=== PATIENT | male | born 1955 | race Two or more races ===

== ENCOUNTER 2022-01-04 03:07 | Inpatient (IN) | payer OTHER ==
[~2022-01-04] VITALS: Ht 182.9 cm; Wt 86.0 kg
[2022-01-04 04:16] LABS: Basophils # (auto) 0.1 10 ^3/uL (0-0.2); Eosinophils # (auto) 0 10 ^3/uL (0-0.8); Lymphocytes # (auto) 1.7 10 ^3/uL (0.4-5.4); Monocytes # (auto) 0.8 10 ^3/uL (0-1.3)
[2022-01-04 04:18] LABS: Basophils % (auto) 0.5 % (0.0-2.0); Hemoglobin 8.9 g/dL (13.5-17.5); Lymphocytes % (auto) 15.1 % (10.0-50.0); Mean Corpuscular Hemoglobin 38.6 pg (28.0-32.0); Mean Corpuscular Hgb Conc. 34.1 g/dL (32.0-36.0); Monocytes % (auto) 6.8 % (0.0-12.0); Neutrophils # (auto) 8.9 10 ^3/uL (1.6-8.6); Neutrophils % (auto) 77.6 % (37.0-80.0); Nucleated Red Blood Cells % 0.1 %; Red Cell Distribution Width 16.4 % (11.8-14.3); White Blood Cell 11.4 10^3/uL (4.4-10.8)
[2022-01-04 04:33] LABS: Albumin 1.7 g/dL (3.4-5.0); Calcium 8.1 mg/dL (8.5-10.1)
[2022-01-04 04:35] LABS: BUN/Creatinine Ratio 5.4
[2022-01-04 04:36] LABS: Lactic Acid w/Reflex 10.4 mmol/L (0.4-2.0)
[2022-01-04 04:40] LABS: Bilirubin, Total 1.7 mg/dL (0.2-1.0); Total Protein 6.8 g/dL (6.4-8.2)
[2022-01-04 05:24] LABS: INR 1.66 (0.9-1.15); Partial Thromboplastin Time 60.6 sec (23.6-33.0)
[2022-01-04] MEDS ORDERED: cefTRIAXone 1GM/50ML D5W 50 ML IV ONE (08:15)
[2022-01-04] MEDS ORDERED: PIPERACILLIN-TAZO 4.5GM 100 ML IV ONE (09:30)
[2022-01-04] MEDS ORDERED: SODIUM CHLORIDE 0.9% 250 ML IV ONE (09:30)
[2022-01-04] MEDS ORDERED: NOREPINEPHRINE 8 MG/250ML KIT 250 ML IV SCH (10:00)
[2022-01-04] MEDS ORDERED: ONDANSETRON HCL 4 MG/2 ML VIAL IV PRN (13:30)
[2022-01-04] MEDS ORDERED: NITROGLYCERIN 0.4 MG SL TAB SL PRN (13:30)
[2022-01-04] MEDS ORDERED: DOCUSATE SOD 100 MG CAP PO PRN (13:30)
[2022-01-04] MEDS ORDERED: SODIUM CHLORIDE 0.9% 1,000 ML IV SCH (13:30)
[2022-01-04 19:00] VITALS: BP 104/57
[2022-01-04 20:00] VITALS: BP 110/65
[2022-01-04] MEDS ORDERED: VANCOMYCIN PER PHARMACY 0 MG IV SCH (20:30)
[2022-01-04 21:00] VITALS: BP 106/46
[2022-01-04] MEDS ORDERED: VANCOMYCIN 1GM/250ML 250 ML IV ONE (21:15)
[2022-01-04] MEDS: SODIUM CHLORIDE 0.9% 1,000 ML IV SCH (21:51)
[2022-01-04 22:00] VITALS: BP 121/43
[2022-01-04] MEDS ORDERED: SUCCINYLCHOLINE CHLORIDE 20 MG/ML 10ML VIAL IV ONE (23:06)
[2022-01-04] MEDS ORDERED: ETOMIDATE (2MG/ML) 20ML VIAL IV ONE (23:06)
[2022-01-04] MEDS ORDERED: PROPOFOL 100 ML IV ONE (23:12)
[2022-01-04 23:23] VITALS: BP 129/57
[2022-01-05] VITALS (98 sets, daily range): BP systolic 70–113; BP diastolic 24–64
[2022-01-05] MEDS: PIPERACILLIN-TAZOB 2.25GM 50 ML IV SCH ×4 (00:30→22:15)
[2022-01-05] MEDS: PROPOFOL 100 ML IV SCH ×3 (00:33→21:00)
[2022-01-05] MEDS: LACTULOSE 20Gm/30ML SOLN PO SCH ×7 (00:36→22:15)
[2022-01-05] MEDS: fentaNYL Drip 2500mCg/250mlNS 250 ML IV SCH (00:57)
[2022-01-05] MEDS: SODIUM BICARBONATE 50ML VIAL 150 ML in D5W 5% 1,000 ML IV SCH ×2 (01:30→13:57)
[2022-01-05] MEDS: LACTULOSE 10g/15ml SOLN PR SCH ×3 (01:42→04:54)
[2022-01-05] MEDS: SODIUM CHLORIDE 0.9% 1,000 ML IV SCH (05:03)
[2022-01-05 05:09] LABS: Hematocrit 24.7 % (41.0-53.0); Hemoglobin 8.2 g/dL (13.5-17.5); Mean Corpuscular Hemoglobin 39.3 pg (28.0-32.0); Mean Corpuscular Hgb Conc. 33.2 g/dL (32.0-36.0); Mean Corpuscular Volume 118.3 fL (80.0-100.0); Red Blood Cells 2.09 10^6/uL (4.5-5.90); Red Cell Distribution Width 16.9 % (11.8-14.3); White Blood Cell 28.6 10^3/uL (4.4-10.8)
[2022-01-05 05:35] LABS: Basophils % (manual) 0 (0.0-2.0); Blast Cells 0; Metamyelocytes % 0; Myelocytes % 0; Promyelocytes % 0; Reactive Lymphocytes 0
[2022-01-05 06:40] LABS: Albumin 1.2 g/dL (3.4-5.0)
[2022-01-05 06:43] LABS: BUN/Creatinine Ratio 5.4; Bilirubin, Total 1.9 mg/dL (0.2-1.0); Total Protein 6.2 g/dL (6.4-8.2)
[2022-01-05 06:59] LABS: Band Neutrophils % (manual) 20; Eosinophils % (manual) 1 (0-7); Lymphocytes % (manual) 4 (10.0-50.0); Monocytes % (manual) 4 (0-12)
[2022-01-05] MEDS ORDERED: SODIUM ZIRCONIUM CYCL 10 GM PAK PO ONE (09:30)
[2022-01-05] MEDS ORDERED: FUROSEMIDE 40 MG/4 ML VIAL IV ONE (09:30)
[2022-01-05] MEDS ORDERED: CALCIUM GLUC 1,000mg/50ml-NS 50 ML IV ONE (09:30)
[2022-01-05] MEDS ORDERED: ALBUTEROL SULF 2.5 MG/0.5ML(0.5%) NEB SOLN NEB ONE (09:30)
[2022-01-05] MEDS ORDERED: SODIUM BICARBONATE 8.4% INJ 50ML SYRINGE IV ONE (09:30)
[2022-01-05] MEDS: THIAMINE 100mg/ml INJ (200mg/2ml VIAL) IV SCH (11:02)
[2022-01-05] MEDS: phytonadione 10 MG in SODIUM CHL 0.9% 50 ML IV SCH (11:59)
[2022-01-05 12:17] LABS: Alcohol, Urine < 3.0 mg/dL (0-10); Amphetamine Screen, Urine NEGATIVE (NEGATIVE); Barbiturate Scree,Urine NEGATIVE (NEGATIVE); Benzodiazephine Screen, Urine NEGATIVE (NEGATIVE); Cannabinoid Screen, Urine NEGATIVE (NEGATIVE); Cocaine Screen, Urine NEGATIVE (NEGATIVE); Opiate Scree,Urine NEGATIVE (NEGATIVE); Phencyclidine Screen, Urine NEGATIVE (NEGATIVE); Urine Bacteria FEW /hpf (None Seen); Urine Blood 3+ /uL (Negative); Urine Hyaline Cast MANY /lpf (0 - 2); Urine Mucus FEW (None Seen); Urine Specific Gravity 1.022 (1.001-1.035); Urine WBC 743 /hpf (0 - 3); Urine WBC Clumps PRESENT /hpf (None Seen)
[2022-01-05 12:24] LABS: Protein, Urine 393.5 mg/dL (0.0-11.9)
[2022-01-05] MEDS ORDERED: FAMOTIDINE (10MG/ML) 2ML VL IV SCH (13:00)
[2022-01-05] MEDS ORDERED: LIDOCAINE 1% (LOCAL ANESTH.) PF 5ml SDV ID ONE (14:00)
[2022-01-05] MEDS: SODIUM ZIRCONIUM CYCL 10 GM PAK PO SCH ×2 (14:02→22:15)
[2022-01-05] MEDS ORDERED: VASOPRESSIN 50 UNITS in D5W 5% 247.5 ML IV SCH (15:00)
[2022-01-05] MEDS ORDERED: EPINEPHrine HCL 250 ML IV SCH (15:00)
[2022-01-05] MEDS: NOREPINEPHRINE BITARTRATE 32 MG in SODIUM CHL 0.9% 218 ML IV SCH (18:18)
[2022-01-05] MEDS: SODIUM CHLOR 0.9% PF (SALINE LOCK) 10ML VIAL/SYR IV SCH (22:14)
[2022-01-06] VITALS (76 sets, daily range): BP systolic 65–120; BP diastolic 29–62
[2022-01-06] MEDS: fentaNYL Drip 2500mCg/250mlNS 250 ML IV SCH (00:45)
[2022-01-06] MEDS: LACTULOSE 20Gm/30ML SOLN PO SCH ×4 (02:00→14:23)
[2022-01-06] MEDS: PIPERACILLIN-TAZOB 2.25GM 50 ML IV SCH (05:36)
[2022-01-06] MEDS: SODIUM ZIRCONIUM CYCL 10 GM PAK PO SCH (05:36)
[2022-01-06 07:06] LABS: Albumin 1.3 g/dL (3.4-5.0); Calcium 7.3 mg/dL (8.5-10.1); Potassium 4.6 mmol/L (3.5-5.1)
[2022-01-06 07:08] LABS: BUN/Creatinine Ratio 5.1
[2022-01-06 07:11] LABS: Lactic Acid w/Reflex 9.5 mmol/L (0.4-2.0); Total Protein 5.5 g/dL (6.4-8.2)
[2022-01-06 07:23] LABS: Basophils # (auto) 0.2 10 ^3/uL (0-0.2); Basophils % (auto) 1.1 % (0.0-2.0); Eosinophils # (auto) 0.2 10 ^3/uL (0-0.8); Eosinophils % (auto) 1.1 % (0.0-7.0); Hematocrit 22.6 % (41.0-53.0); Hemoglobin 7.6 g/dL (13.5-17.5); Lymphocytes # (auto) 2.1 10 ^3/uL (0.4-5.4); Lymphocytes % (auto) 9.3 % (10.0-50.0); Mean Corpuscular Hemoglobin 37.5 pg (28.0-32.0); Mean Corpuscular Hgb Conc. 33.7 g/dL (32.0-36.0); Monocytes # (auto) 1.2 10 ^3/uL (0-1.3); Monocytes % (auto) 5.4 % (0.0-12.0); Neutrophils # (auto) 18.4 10 ^3/uL (1.6-8.6); Neutrophils % (auto) 83.1 % (37.0-80.0); Nucleated Red Blood Cells % 0.1 %; Red Blood Cells 2.03 10^6/uL (4.5-5.90); Red Cell Distribution Width 16.8 % (11.8-14.3); White Blood Cell 22.1 10^3/uL (4.4-10.8)
[2022-01-06 07:25] LABS: Mean Corpuscular Volume 111.3 fL (80.0-100.0)
[2022-01-06] MEDS: NOREPINEPHRINE BITARTRATE 32 MG in SODIUM CHL 0.9% 218 ML IV SCH (10:13)
[2022-01-06] MEDS: SODIUM CHLOR 0.9% PF (SALINE LOCK) 10ML VIAL/SYR IV SCH (10:22)
[2022-01-06] MEDS: phytonadione 10 MG in SODIUM CHL 0.9% 50 ML IV SCH (10:46)
[2022-01-06] MEDS: THIAMINE 100mg/ml INJ (200mg/2ml VIAL) IV SCH (10:46)
[2022-01-06] MEDS ORDERED: VANCOMYCIN PER PHARMACY 0 MG IV STA (13:50)
[2022-01-06] MEDS ORDERED: MEROPENEM 1GM IVPB 100 ML IV ONE (14:00)
[2022-01-06] MEDS ORDERED: MICAFUNGIN SODIUM 100 MG in SODIUM CHL 0.9% 100 ML IV ONE (14:13)
[2022-01-06] MEDS: SODIUM BICARBONATE 50ML VIAL 150 ML in D5W 5% 1,000 ML IV SCH (14:21)
[2022-01-06] MEDS ORDERED: VANCOMYCIN 750mg/250ml 250 ML IV ONE (16:00)
[2022-01-06] MEDS ORDERED: MORPHINE SULFATE INJECTION 2 MG/ML SYRG IV PRN ×2 (16:00→16:45)
[2022-01-06] MEDS ORDERED: LORazepam 2MG/ML-1ML VIAL IV PRN (16:00)
[2022-01-06] MEDS ORDERED: LORazepam 2MG/ML-1ML VIAL IV ONE (18:00)
[2022-01-07] MEDS ORDERED: MEROPENEM 500MG IVPB 50 ML IV SCH (10:00)
[2022-01-07] MEDS ORDERED: MICAFUNGIN SODIUM 100 MG in SODIUM CHL 0.9% 100 ML IV SCH (10:00)
[2022-01-08] MEDS ORDERED: FAMOTIDINE (10MG/ML) 2ML VL IV SCH (10:00)
== END 2022-01-06 17:59 | DRG 871 ==
LOC: EDBD 03:07 → ER 03:12 → TELE 13:27 → DOU IN ICU 18:15 → ICU CENTRL 23:25
PROVIDERS: ADMIT Internal Medicine; ATTEND Internal Medicine Pulmonary Disease
PROC: 5A1945Z Respiratory Ventilation, 24-96 Consecutive Hours (ICD-10-PCS; principal; 2022-01-05)
PROC: 02HV33Z Insertion of Infusion Device into Superior Vena Cava, Percutaneous Approach (ICD-10-PCS; 2022-01-05)
PROC: 0BH17EZ Insertion of Endotracheal Airway into Trachea, Via Natural or Artificial Opening (ICD-10-PCS; 2022-01-05)
DX: A41.9 Sepsis, unspecified organism (principal); R65.21 Severe sepsis with septic shock; J18.9 Pneumonia, unspecified organism; J96.01 Acute respiratory failure with hypoxia; N17.0 Acute kidney failure with tubular necrosis; E87.1 Hypo-osmolality and hyponatremia; D68.4 Acquired coagulation factor deficiency; Z66 Do not resuscitate; D64.9 Anemia, unspecified; Z20.822 Contact with and (suspected) exposure to COVID-19; E88.09 Other disorders of plasma-protein metabolism, not elsewhere classified; E87.5 Hyperkalemia; I10 Essential (primary) hypertension; K70.31 Alcoholic cirrhosis of liver with ascites; K72.90 Hepatic failure, unspecified without coma; K57.30 Diverticulosis of large intestine without perforation or abscess without bleeding; Z88.5 Allergy status to narcotic agent
CPT/HCPCS: 36415; 36569; 36600; 51702; 70450; 71045; 74176; 76775; 80053; 80202; 80307; 81001; 82140; 82570; 82805; 83605; 83880; 84132; 84156; 84300; 84484; 85007; 85025; 85027; 85610; 85730; 87040; 87081; 93005; 93306; 94003; 94640; 95819; 96361; 96365; 96366; 96367; G0378; J0171; J0330; J0696; J2185; J2248; J2543; J2704; J3430; J3490; J7060